=== PATIENT | male | born 1995 | race Caucasian/White ===

== ENCOUNTER 2016-09-20 00:50 | Emergency (ER) | payer OTHER ==
[~2016-09-20] VITALS: Ht 172.7 cm; Wt 74.2 kg
[2016-09-20 00:56] VITALS: TEMP 36.6; Ht 172.7 cm; Wt 74.2 kg
[2016-09-20] MEDS ORDERED: SODIUM CHLORIDE 0.9% 1000ML 1,000 ML IV STA ×2 (01:09)
[2016-09-20] MEDS ORDERED: DiphenhydrAMINE HCL 50 MG/ML VIAL IV STA (01:09)
[2016-09-20] MEDS ORDERED: METOCLOPRAMIDE HCL INJ 5 MG/ML 2 ML VIAL IV STA (01:09)
[2016-09-20] MEDS ORDERED: DEXAMETHASONE SOD INJ 10 MG/ML VIAL IV ONE (01:15)
[2016-09-20 01:49] LABS: BASO % 0.3 %; BASO ABS # 0.04 K/uL (0-0.2); COMPLETE YES; EOS % 0.1 %; HEMATOCRIT 45.6 % (42-52); IG% 0.2 %; LYMPH % 7.7 %; MEAN CELL VOLUME 88.9 fL (80-100); MEAN CORPUSCULAR HEMOGLOBIN 32.6 pg (25-34); MEAN CORPUSCULAR HGB CONC 36.6 g/dl (32-36); MEAN PLATELET VOLUME 11.8 fL (7.4-10.4); MONO % 3.2 %; NEUT % 88.5 %; PLATELET COUNT 229 K/uL (130-400); RED BLOOD COUNT 5.13 M/uL (4.7-6.1); WHITE BLOOD COUNT 14.25 K/uL (4.8-10.8)
[2016-09-20 02:11] LABS: BLOOD UREA NITROGEN 13 mg/dl (7-18); BUN/CREATININE RATIO 14.3 (10-20); CARBON DIOXIDE 26 mmol/L (21-32); CHLORIDE 99 mmol/L (98-107); CREATININE 0.93 mg/dl (0.60-1.40); GLUCOSE 111 mg/dl (70-99)
[2016-09-20 02:24] LABS: SODIUM 137 mmol/L (136-145)
[2016-09-20] MEDS ORDERED: ESCI10TA17 PO (02:56)
--- NOTE | 2016-09-20 03:08 | EMERGENCY ROOM VISIT NOTE ---
History First contact with patient: 00:58 Chief Complaint: HEADACHE Stated Complaint: HEADACHE, NAUSEA, VOMITING, SHAKING History of Present Illness The patient is a 20 year old male who presents to the Emergency Room with complaints of sudden onset of headache described as throbbing, ranging in severity was 8 out of 10 to the right frontal region that is now improved after Tylenol is currently 4 out of 10 since 9 PM tonight. Patient with nausea and vomiting. Patient took Tylenol. 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 Patient denies chest pain, dyspnea, fever, chills, numbness, tingling, vision problems, neck stiffness, cold symptoms. No history of migraines. No family history of migraines. No head injury. Patient was studying when symptoms came on. No family history of aneurysm or sudden . Review of Systems See HPI for pertinent positives & negatives. A total of 10 systems reviewed and were otherwise negative. Past Medical/Surgical History Depression, wisdom tooth extraction Social History Smoking Status: Never Smoker Smokeless Tobacco Use: No Alcohol Use: occasionally Drug Use: marijuana Marital Status: single Occupation Status: [employer] student Current/Historical Medications Scheduled Escitalopram (Lexapro), 10 MG PO DAILY Allergies Coded Allergies: No Known Allergies (Unverified , 09/20/16) Physical Exam Vital Signs Date Time Temp Pulse Resp B/P Pulse Ox O2 Delivery O2 Flow Rate FiO2 09/20/16 02:44 53 18 118/60 99 Room Air 09/20/16 00:56 36.6 61 20 134/79 100 Room Air Physical Exam VITALS: Vitals are noted on the nurse's note and reviewed by myself. Vital signs stable. GENERAL: Pleasant male, in no acute distress, nondiaphoretic, well-developed well-nourished. SKIN: The skin was without rashes, erythema, edema, or bruising. There is no tenting of the skin. Capillary reflex less than 2 seconds. HEAD: Normocephalic atraumatic. EARS: External auditory canals clear, tympanic membranes pearly baldwin without erythema or effusion bilaterally. EYES: Pupils equal round and reactive to light and accommodation. Conjunctivae without injection, sclerae without icterus. Extraocular movements intact. NOSE: Patent, turbinates without inflammation or discharge. No sinus tenderness. MOUTH: Mucous membranes moist. Pharynx without erythema or exudate. Uvula midline. Airway patent. Tongue does not deviate. NECK: Supple without nuchal rigidity. No lymphadenopathy. No thyromegaly. Cervical spine is nontender. No JVD. HEART: Regular rate and rhythm without murmurs gallops or rubs. LUNGS: Clear to auscultation bilaterally without wheezes, rales or rhonchi. No dullness to percussion. No retractions or accessory muscle use. ABDOMEN: Positive bowel sounds x 4. Normal tympanic percussion. Soft, nontender, without masses or organomegaly. Capps sign negative. No guarding or rebound tenderness. MUSCULOSKELETAL: No muscle atrophy, erythema, or edema noted. NEURO: Patient was alert and oriented to person place and time. Normal sensation to light and sharp touch. No focal neurological deficits. Cranial nerves II through XII grossly intact. No pronator drift. Cerebellar exam intact. Medical Decision & Procedures Laboratory Results 09/20/16 01:25 Red Blood Count 5.13, Mean Corpuscular Volume 88.9, Mean Corpuscular Hemoglobin 32.6, Mean Corpuscular Hemoglobin Concent 36.6, Mean Platelet Volume 11.8, Neutrophils (%) (Auto) 88.5, Lymphocytes (%) (Auto) 7.7, Monocytes (%) (Auto) 3.2, Eosinophils (%) (Auto) 0.1, Basophils (%) (Auto) 0.3, Neutrophils # (Auto) 12.61, Lymphocytes # (Auto) 1.10, Monocytes # (Auto) 0.46, Eosinophils # (Auto) 0.01, Basophils # (Auto) 0.04 09/20/16 01:25 Test 09/20/16 01:25 White Blood Count 14.25 K/uL (4.8-10.8) Red Blood Count 5.13 M/uL (4.7-6.1) Hemoglobin 16.7 g/dL (14.0-18.0) Hematocrit 45.6 % (42-52) Mean Corpuscular Volume 88.9 fL (80-100) Mean Corpuscular Hemoglobin 32.6 pg (25-34) Mean Corpuscular Hemoglobin Concent 36.6 g/dl (32-36) Platelet Count 229 K/uL (130-400) Mean Platelet Volume 11.8 fL (7.4-10.4) Neutrophils (%) (Auto) 88.5 % Lymphocytes (%) (Auto) 7.7 % Monocytes (%) (Auto) 3.2 % Eosinophils (%) (Auto) 0.1 % Basophils (%) (Auto) 0.3 % Neutrophils # (Auto) 12.61 K/uL (1.4-6.5) Lymphocytes # (Auto) 1.10 K/uL (1.2-3.4) Monocytes # (Auto) 0.46 K/uL (0.11-0.59) Eosinophils # (Auto) 0.01 K/uL (0-0.5) Basophils # (Auto) 0.04 K/uL (0-0.2) RDW Standard Deviation 40.5 fL (36.4-46.3) RDW Coefficient of Variation 12.5 % (11.5-14.5) Immature Granulocyte % (Auto) 0.2 % Immature Granulocyte # (Auto) 0.03 K/uL (0.00-0.02) Anion Gap 12.0 mmol/L (3-11) Est Creatinine Clear Calc Drug Dose 122.5 ml/min Estimated GFR () 136.5 Estimated GFR (Non- 117.8 BUN/Creatinine Ratio 14.3 (10-20) Calcium Level 9.0 mg/dl (8.5-10.1) Medications Administered Medications (Trade) Dose Ordered Sig/Shalini Route Start Time Stop Time Status Last Admin Dose Admin Dexamethasone Sodium Phosphate (Decadron Inj) 10 mg NOW ONCE IV 09/20/16 01:15 09/20/16 01:16 DC 09/20/16 01:21 10 MG Diphenhydramine HCl (Benadryl Inj) 12.5 mg NOW STAT IV 09/20/16 01:09 09/20/16 01:11 DC 09/20/16 01:21 12.5 MG Metoclopramide HCl 10 mg 10 mg NOW STAT IV 09/20/16 01:09 09/20/16 01:11 DC 09/20/16 01:21 10 MG Sodium Chloride 1,000 ml @ 999 mls/hr Q1H1M STAT IV 09/20/16 01:09 09/20/16 02:09 DC 09/20/16 01:21 999 MLS/HR Sodium Chloride (Nss 1000ml) 1,000 ml @ 125 mls/hr Q8H STAT IV 09/20/16 01:09 09/20/16 09:08 09/20/16 01:21 125 MLS/HR ED Course Prior records/ancillary studies reviewed. Triage Nursing notes reviewed. The patient's history was concerning for headache. Differential diagnosis: Etiologies such as migraine headache, meningitis, sinusitis, CO exposure, ICH, SAH, infection, tumor, headache, sinus thrombosis, arterial dissection, as well as others were entertained. Physical examination findings: As above. Non-focal. ER treatment provided: Decadron, Reglan, Benadryl, IV fluids On reassessment the patient felt better. Diagnostics interpreted by me: The labs revealed leukocytosis. Most likely marginalization from vomiting. No worrisome electrolyte abnormality Imaging studies: MRI HEAD : Comparison: CT head at 0146 hrs. No ICH, mass effect or edema. No foci of acute ischemia. No abnormal foci of signal in the brain parenchyma. Prominent perivascular space right infra lenticular location is noted incidentally. No hydrocephalus. No Chiari malformation. Region of the sella is unremarkable. Paranasal sinuses are clear along with the mastoid air cells. Radiologist: Shreyas Brown M.D. CT HEAD: Comparison: None available No ICH, mass effect or edema. No evidence of acute cortical stroke. In the right infra lenticular location there is a 5 mm CSF density cystic region which can represent a prominent perivascular space or possibly an old lacunar infarct, however in this patient's age group prominent perivascular space is much more favored.: Visualized sinuses and mastoid air cells are clear. No skull fractures. Radiologist: Shreyas Brown M.D. This appears to be consistent with HEADLEY. CT was slightly abnormal so MRI was ordered. Patient was neurovascularly and neurologically intact. He had unremarkable workup as above. He was advised to follow-up with ENT for his inability to smell for many years now and health services in a few days for his headache. He was advised to return to the immediate for severe headache, numbness, tingling, worsening signs or symptoms or as needed. Patient ambulated out without difficulties. By the evaluation outlined above emergent etiologies such as meningitis, sinusitis, CO exposure, ICH, SAH, infection, temporal arteritis, tumor, sinus thrombosis, arterial dissection, as well as others were deemed relatively unlikely. The pt informed about the findings as listed above. All questions were answered and pleased with the treatment. Return instructions were outlined and the patient was discharged in stable condition. Referral: The patient was referred back to their primary care physician and ENT for follow -up in 2 to 3 days for a recheck of the current condition. Case reviewed with my attending Medical Decision As above [place] Drug Monitoring Program Search Results: patient reviewed within database, see additional documentation (patient is on a pain contract and receives chronic narcotics) Impression Primary Impression: Migraine Departure Information Dispostion Home / Self-Care Condition GOOD Referrals No Doctor, Assigned (PCP) Patient Instructions My [facility] Additional Instructions DO NOT drive, drink alcohol, operate machinery, or perform dangerous activities today. You were given medications in the ER that can affect your ability to safely function or operate a vehicle. Rest today in a quiet, peaceful, dark environment and get a full 8-10 hrs of sleep tonight. Avoid loud noises, smoke/smoking, alcohol, bright lights, stress, or physical exertion today to minimize the chance the headache may return. Continue current medications. Ibuprofen(Motrin, Advil) may be used for fever or pain. Use 600mg every six hours as needed. Take with food. Avoid using more than 2400mg in a 24 hour period. Do not use 2400mg per day for more than three consecutive days without physician direction. Prolonged inappropriate use can lead to stomach upset or ulcers. (AND/OR) Acetaminophen(Tylenol) may be used for fever or pain. Use 1000mg every six hours as needed. Avoid using more than 3000mg in a 24 hour period. Return to the ER for passing out, worsening headache, vision problems, neck stiffness/pain, fevers, vomiting, worsening of your condition, or as needed. Follow up with your primary physician and/or a neurologist in 2-3 days for a recheck of your current condition. Follow-up with ENT for your inability to smell. Call for an appointment. Problem Qualifiers Primary Impression: Migraine Migraine type: without aura Status migrainosus presence: without status migrainosus Intractability: not intractable Qualified Codes: G43.009 - Migraine without aura, not intractable, without status migrainosus
[2016-09-20 03:15] VITALS: BP 118/60; PULSE 53; O2SAT 99
--- NOTE | 2016-09-20 07:05 | DIAGNOSTIC IMAGING REPORT ---
CT OF THE HEAD WITHOUT CONTRAST CLINICAL HISTORY: Severe headache. COMPARISON STUDY: No previous studies for comparison. CT DOSE: 537.48 mGy.cm TECHNIQUE: Helical axial images of the head were obtained without IV contrast. Automated exposure control was utilized for the study. FINDINGS: No acute intracranial hemorrhage, midline shift or mass effect is present. A prominent perivascular space is noted within the right basal ganglia. Ventricular system is normal. Basilar cisterns are patent. There are no extra-axial collections. There are no findings to suggest acute dural sinus thrombosis or acute territorial infarct. There is no significant calvarial abnormality. Visualized portions of the sinuses and the mastoid air cells are clear. IMPRESSION: No acute intracranial findings. Electronically signed by: Vernon Higgins M.D. 09/20/2016 7:03 AM Dictated Date/Time: 09/20/2016 7:01 AM
--- NOTE | 2016-09-20 07:10 | DIAGNOSTIC IMAGING REPORT ---
MRI OF THE BRAIN WITHOUT CONTRAST CLINICAL HISTORY: Severe headache. Nausea and vomiting. COMPARISON STUDY: Head CT September 20, 2016. TECHNIQUE: Utilizing a 1.5 [place] magnet and dedicated coil, multiplanar, multiecho imaging of the brain was performed without IV contrast. FINDINGS: There are no areas of restricted diffusion. No acute intracranial hemorrhage, midline shift or mass effect is present. Brain volume is normal. Ventricular system is normal. Basilar cisterns are patent. There are no extra-axial collections. Flow-voids for the major intracranial vessels are present. No intracranial masses identified on this unenhanced examination. An 8 mm T2 hyperintense focus within the right basal ganglia represents a prominent perivascular space. Calvarial signal is maintained. There is minimal mucosal thickening of the sinuses. Orbits are unremarkable. IMPRESSION: Normal unenhanced MRI of the brain. Electronically signed by: Vernon Higgins M.D. 09/20/2016 7:08 AM Dictated Date/Time: 09/20/2016 7:05 AM
== END 2016-09-20 03:15 | disposition home or self-care (01) ==
LOC: C.EDB 00:53
DX: G43.909 Migraine, unspecified, not intractable, without status migrainosus (principal); F32.9 Major depressive disorder, single episode, unspecified; Z79.899 Other long term (current) drug therapy